=== PATIENT | male | born 1945 | race Caucasian/White ===

== ENCOUNTER → 2017-02-06 | Outpatient (REF) ==
[~2017-02-06] MED LIST: ASPIRIN 32325 MG/TAB PO; ASPIRIN 81M81 MG/TA2 PO; AZO-STANDARD95 MG PO; CENTRUM SILVER1 TAB; CIPRO 250MG TA250 MG PO; COLACE 100100 MG/CAP PO; FLOMAX 0.40.4 MG/CAP PO; GLUCOSAMINE 1000 PO; GLUCOSAMINE/CHO1 CA5 PO; LEVAQUIN 5500 MG/TA1 PO; LIPITOR 40MG TA40 MG PO; NATURE'S BLEND400 IU PO; NICODERM C14 MG/PATC TD; NORCO 325 MG-51 TAB PO; PLAVIX 75MG TAB75 MG PO
== END ==
LOC: ZLAB.WCH 18:12
DX: Z01.89 Encounter for other specified special examinations (principal)
CPT/HCPCS: G0103

== ENCOUNTER 2017-02-20 13:03 | Emergency (ER) | payer MEDICARE, BC ==
[~2017-02-20] VITALS: Ht 193 cm; Wt 94.5 kg
[~2017-02-20 13:03] MED LIST changes: -ASPIRIN 32325 MG/TAB PO; -COLACE 100100 MG/CAP PO; -GLUCOSAMINE/CHO1 CA5 PO; -LIPITOR 40MG TA40 MG PO; -NICODERM C14 MG/PATC TD; -PLAVIX 75MG TAB75 MG PO
[2017-02-20 13:15] VITALS: TEMP 97.6
[2017-02-20 13:44] LABS: BASO # 0.1 (0.0-0.2); BASO % 0.7 % (0.0-2.0); EOS # 0.1 (0.0-0.7); EOS % 0.9 % (0-4.0); GRAN # 5.5 (1.4-6.5); GRAN % 62.8 % (42.2-75.2); HEMATOCRIT 46.4 % (42.0-52.0); HEMOGLOBIN 15.7 g/dl (13.5-18.0); LYMPH # 2.5 (1.2-3.4); MEAN CELL VOLUME 91 fl (80.0-100.0); MEAN CORPUSCULAR HEMOGLOBIN 31 pg (27.0-31.0); MEAN CORPUSCULAR HGB CONC 34 g/dl (33.0-37.0); MONO # 0.6 (0.1-0.6); MONO % 7.3 % (1.7-9.3); PLATELET COUNT 218 K/mm3 (130-400); RED BLOOD COUNT 5.08 M/mm3 (4.20-5.60); REDCELL DISTRIBUTION WIDTH-CV 13.2 % (11.5-14.5); WHITE BLOOD COUNT 8.8 K/mm3 (4.8-10.8)
[2017-02-20 13:50] LABS: ADJUSTED CALCIUM 9.7 mg/dL (8.4-10.2); ALBUMIN 4.3 gm/dL (3.5-5.0); BILIRUBIN,TOTAL 0.6 mg/dL (0.0-1.0); C-REACTIVE PROTEIN 0.8 mg/dL (0.0-0.9); CALCIUM 9.9 mg/dL (8.4-10.2); CREATININE, serum 0.99 mg/dL (0.66-1.25); POTASSIUM 4.3 mmol/L (3.4-5.0); TOTAL PROTEIN 6.8 gm/dL (6.4-8.2)
[2017-02-20 13:57] LABS: PROTHROMBIN TIME 11.5 SECONDS (9.7-12.8)
[2017-02-20 13:59] LABS: PARTIAL THROMBOPLASTIN TIME 32.1 SECONDS (26.0-37.0)
[2017-02-20 14:36] VITALS: BP 139/81; PULSE 61
== END 2017-02-20 14:48 | disposition short-term general hospital (02) ==
LOC: COL.ER 13:03
PROVIDERS: Emergency Medicine
DX: I63.9 Cerebral infarction, unspecified (principal); Z87.442 Personal history of urinary calculi; F17.210 Nicotine dependence, cigarettes, uncomplicated; Z98.890 Other specified postprocedural states
CPT/HCPCS: A4315; J2997

== ENCOUNTER 2017-02-23 10:44 | Inpatient (IN) | payer MEDICARE, BC ==
[~2017-02-23] VITALS: Ht 193 cm; Wt 98.8 kg
[2017-02-23] MEDS ORDERED: ASPIRIN 32325 MG/TAB PO (14:16)
[2017-02-23] MEDS ORDERED: PLAVIX 75MG TAB75 MG PO (14:17)
[2017-02-23] MEDS ORDERED: LIPITOR 40MG TA40 MG PO (14:17)
[2017-02-23] MEDS ORDERED: NICODERM C14 MG/PATC TD (14:18)
[2017-02-23] MEDS ORDERED: GLUCOSAMINE/CHO1 CA5 PO (14:19)
[2017-02-23 16:46] VITALS: BP 112/59; PULSE 50; TEMP 97.2
[2017-02-23 17:31] VITALS: BP 112/59; PULSE 51; TEMP 97.2
[2017-02-23 19:18] VITALS: BP 97/60; PULSE 51; TEMP 98.1
[2017-02-24 04:47] VITALS: BP 134/65; PULSE 60; TEMP 98.4
[2017-02-24 17:43] VITALS: BP 124/71; PULSE 53; TEMP 98.5
[2017-02-25 03:25] VITALS: BP 107/66; PULSE 52; TEMP 98
[2017-02-25 15:57] VITALS: BP 109/58; PULSE 57; TEMP 98.5
[2017-02-26 04:16] VITALS: BP 111/69; PULSE 57; TEMP 98.5
[2017-02-26 16:18] VITALS: BP 114/77; PULSE 54; TEMP 98.3
[2017-02-27 05:21] VITALS: BP 113/60; PULSE 54; TEMP 98.1
[2017-02-27 17:57] VITALS: BP 115/70; PULSE 60; TEMP 98.6
[2017-02-28 04:56] VITALS: BP 100/77; PULSE 61; TEMP 97.6
[2017-02-28] MEDS ORDERED: COLACE 100100 MG/CAP PO (11:18)
== END 2017-02-28 13:29 | disposition home or self-care (01) | DRG 57 ==
DX: I69.351 Hemiplegia and hemiparesis following cerebral infarction affecting right dominant side (principal); I69.320 Aphasia following cerebral infarction; I10 Essential (primary) hypertension; F17.290 Nicotine dependence, other tobacco product, uncomplicated; I69.391 Dysphagia following cerebral infarction; R13.10 Dysphagia, unspecified
CPT/HCPCS: 99222-AI; 99232-AI; 99239; J1650

== ENCOUNTER → 2017-05-24 | Outpatient (CLI) | payer MEDICARE, BC ==
[~2017-05-24] MED LIST changes: +ASPIRIN 32325 MG/TAB PO; +COLACE 100100 MG/CAP PO; +GLUCOSAMINE/CHO1 CA5 PO; +LIPITOR 40MG TA40 MG PO; +NICODERM C14 MG/PATC TD; +PLAVIX 75MG TAB75 MG PO
== END ==
LOC: COL.RAD 09:35
DX: C61 Malignant neoplasm of prostate (principal); M19.011 Primary osteoarthritis, right shoulder
CPT/HCPCS: A9503

== ENCOUNTER → 2017-07-06 | Day surgery (SDC) | payer MEDICARE, BC ==
[~2017-07-06] VITALS: Ht 193 cm; Wt 94.4 kg
[~2017-07-06] MED LIST changes: +PYRIDIUM 100MG100 MG PO
[2017-07-06 14:23] VITALS: BP 127/76; PULSE 72; TEMP 98.2
[2017-07-06 15:28] VITALS: TEMP 98.2
[2017-07-06 15:55] VITALS: BP 137/80; PULSE 67
[2017-07-06 16:10] VITALS: BP 127/76; PULSE 65
[2017-07-06 16:25] VITALS: BP 120/83; PULSE 73
[2017-07-06 16:40] VITALS: BP 128/74; PULSE 71
== END ==
LOC: SDCO 12:57
DX: N21.0 Calculus in bladder (principal); I10 Essential (primary) hypertension; Z79.01 Long term (current) use of anticoagulants; Z96.659 Presence of unspecified artificial knee joint; Z95.5 Presence of coronary angioplasty implant and graft; Z85.46 Personal history of malignant neoplasm of prostate; Z86.73 Personal history of transient ischemic attack (TIA), and cerebral infarction without residual deficits; Z87.891 Personal history of nicotine dependence; Z80.7 Family history of other malignant neoplasms of lymphoid, hematopoietic and related tissues; Z80.6 Family history of leukemia; Z83.3 Family history of diabetes mellitus
CPT/HCPCS: C1769; J0690; J1100; J2405; J2704; J3010; J7120

== ENCOUNTER → 2017-10-19 | Outpatient (REF) | LOC: ZLAB.WCH 18:22 | DX: Z01.89 Encounter for other specified special examinations (principal) | CPT/HCPCS: G0103 ==

== ENCOUNTER → 2017-10-26 | Outpatient (CLI) | payer MEDICARE, BC | LOC: COL.RAD 09:37 | DX: I65.23 Occlusion and stenosis of bilateral carotid arteries (principal); I65.03 Occlusion and stenosis of bilateral vertebral arteries; M47.812 Spondylosis without myelopathy or radiculopathy, cervical region; M48.02 Spinal stenosis, cervical region; I63.9 Cerebral infarction, unspecified | CPT/HCPCS: Q9967 ==

== ENCOUNTER → 2018-01-06 | Outpatient (REF) ==
[2018-01-06 13:36] LABS: THYROID STIMULATING HORMONE 1.33 uIU/mL (0.465-4.680)
== END ==
LOC: ZLAB.WCH 12:41
PROVIDERS: Internal Medicine
DX: Z01.89 Encounter for other specified special examinations (principal)

== ENCOUNTER → 2018-05-14 | Outpatient (REF) | LOC: ZLAB.WCH 16:25 | DX: Z01.89 Encounter for other specified special examinations (principal) | CPT/HCPCS: G0103 ==